=== PATIENT | male | born 1955 | race Caucasian/White ===

== ENCOUNTER → 2017-06-04 | Outpatient (CLI) | payer BC | LOC: FIMAGING 12:13 | PROVIDERS: ATTEND Orthopaedic Surgery | DX: M17.12 Unilateral primary osteoarthritis, left knee (principal) ==

== ENCOUNTER 2017-06-20 05:48 | Observation (INO) | payer BC ==
[2017-06-20] MEDS ORDERED: ACETAMINOPHEN 325 MG TAB PO ONE (05:52)
[2017-06-20] MEDS ORDERED: ceFAZolin 2 GM/SWFI 2 GM/20 ML SYR IVP ONE (05:52)
[2017-06-20] MEDS ORDERED: FAMOTIDINE 20 MG TAB PO ONE (05:52)
[2017-06-20] MEDS ORDERED: DEXAMETHASONE 4 MG/ML VIAL IVP ONE (05:52)
[2017-06-20] MEDS ORDERED: LR 1,000 ML IV ONE (05:54)
[2017-06-20] MEDS ORDERED: LIDOCAINE 1% 2 ML INJ ID PRN (05:54)
[2017-06-20] MEDS ORDERED: ROPIVACAINE 0.2% 80 MG, EPINEPHrine 0.2 MG, KETOROLAC TROMETHAMINE 30 MG in SYRINGE 0 ML IU ONE (06:00)
[2017-06-20] MEDS ORDERED: TRANEXAMIC ACID 3,000 MG in NS 50 ML IRR ONE (06:00)
[2017-06-20] MEDS ORDERED: VANCOMYCIN 1 GM VIAL ONE (06:37)
[2017-06-20] MEDS ORDERED: TRANEXAMIC ACID 3,000 MG/50 ML BAG IRR ONE (06:37)
[2017-06-20] MEDS ORDERED: MIDAZOLAM 2 MG/2 ML VIAL IVP ONE (07:00)
--- NOTE | 2017-06-20 07:00 | PDANEPAE ---
ANE History of Present Illness L partial knee replacement ANE Past Medical History - Cardiovascular History Hx Hypertension: No Hx Arrhythmias: No Hx Chest Pain: No Hx Coronary Artery / Peripheral Vascular Disease: No Hx CHF / Valvular Disease: No Hx Palpitations: No Cardiovascular History Comment: on Rx chol - Pulmonary History Hx COPD: No Hx Asthma/Reactive Airway Disease: No Hx Recent Upper Respiratory Infection: No Hx Oxygen in Use at Home: No Hx Sleep Apnea: Yes Sleep Apnea Screening Result - Last Documented: Positive Pulmonary History Comment: lives at [address] in [place]. recent dx JAQUI -uses CPAP - Neurologic History Hx Cerebrovascular Accident: No Hx Seizures: No Hx Dementia: No - Endocrine History Hx Diabetes: No Hypothyroid: No Obesity: mild - Renal History Hx Renal Disorders: No - Liver History Hx Hepatic Disorders: No - Neurological & Psychiatric Hx Hx Neurological and Psychiatric Disorders: No Neurological / Psychiatric History Comment: sees Chiropractor for adjustments. - Cancer History Hx Cancer: No - Congenital Disorder History Hx Congenital Disorders: No - GI History Hx Gastrointestinal Disorders: Yes Gastrointestinal History Comment: heartburn - Other Health History Other Health History: OA L knee. Blood clot DVT L leg 1999 w/ L knee scope - Chronic Pain History Chronic Pain: No - Surgical History Prior Surgeries: R ft ORIF (crushed) 8-12. L knee scope 1999 ANE Review of Systems Review of Systems: - Exercise capacity METS (RN): 4 METS ANE Patient History - Allergies Allergies/Adverse Reactions: No Known Allergies Allergy (Unverified 06/20/17 06:51) - Home Medications Home Medications: Aspirin [Aspirin 81mg (*)] 81 mg PO DAILY 05/10/17 [Last Taken 06/13/17] Cholecalciferol Vit D3 [Vitamin D3 2000 units tab (OTC)] 8,000 units PO DAILY [Last Taken 06/06/17] Ezetimibe [Zetia 10 MG (*)] 10 mg PO HS 05/10/17 [Last Taken 06/18/17] Famotidine [Pepcid 20 MG (*)] 20 mg PO DAILY 05/10/17 [Last Taken 06/18/17] Famotidine [Pepcid 20 MG (*)] 20 mg PO HS PRN 05/10/17 [Last Taken 06/13/17] Herbals/Supplements -Info Only 1 ea PO DAILY 05/10/17 [Last Taken 06/06/17] [place]-3 Fatty Acids [Fish Oil 1000 mg (*)] 1,000 mg PO DAILY 05/10/17 [Last Taken 06/06/17] Pravastatin Sodium [Pravachol] 10 mg PO HS 05/10/17 [Last Taken 06/18/17] Vitamin B Complex [B Complex] 1 each PO DAILY 05/10/17 [Last Taken 06/06/17] - NPO status NPO Since - Liquids (Date): 06/19/17 NPO Since - Liquids (Time): 22:00 NPO Since - Solids (Date): 06/19/17 NPO Since - Solids (Time): 22:00 - Anes Hx Anes Hx: no prior problems - Smoking Hx Smoking Status: Never smoked Marijuana use: No - Alcohol Use Alcohol Use: Other - Family Anes Hx Family Anes Hx: none ANE Labs/Vital Signs - Vital Signs Blood Pressure: 134/77 Heart Rate: 69 Respiratory Rate: 16 O2 Sat (%): 93 Height: 190.5 cm Weight: 99.79 kg ANE Physical Exam - Airway Neck exam: FROM Mallampati Score: Class 2 Mouth exam: normal dental/mouth exam - Pulmonary Pulmonary: clear to auscultation - Cardiovascular Cardiovascular: regular rate and rhythym ANE Anesthesia Plan Anesthesia Plan: spinal Regional Anesthesia: adductor canal FNB
[2017-06-20] MEDS ORDERED: MIDAZOLAM 2 MG/2 ML VIAL ONE (07:03)
[2017-06-20] MEDS ORDERED: fentaNYL 100 MCG/2 ML INJ ONE (07:10)
[2017-06-20] MEDS ORDERED: PROPOFOL 200 MG/20 ML VIAL ONE ×2 (07:11→07:58)
--- NOTE | 2017-06-20 07:12 | PDHPUP ---
History & Physical Update H&P update statement: This history and physical update is based on an assessment of the patient which was completed after admission or registration (within 24 hours), but prior to the surgery/procedure. H&P update: H&P reviewed & patient examined, no change in patient's condition since H&P completed
[2017-06-20] MEDS ORDERED: diphenhydrAMINE 25 MG CAP PO PRN (07:23)
[2017-06-20] MEDS ORDERED: ONDANSETRON DISINTEGRATING 4 MG TAB PO PRN (07:23)
[2017-06-20] MEDS ORDERED: TEMAZEPAM 15 MG CAP PO PRN (07:23)
[2017-06-20] MEDS ORDERED: PROMETHAZINE HCL 25 MG SUPPR PR PRN (07:23)
[2017-06-20] MEDS ORDERED: ONDANSETRON 4 MG/2 ML VIAL IVP PRN (07:23)
[2017-06-20] MEDS ORDERED: DIPHENOXYLATE/ATROPINE LOMOTIL 1 TAB PO PRN (07:23)
[2017-06-20] MEDS ORDERED: BISACODYL 10 MG SUPP PR PRN (07:23)
[2017-06-20] MEDS ORDERED: PROMETHAZINE HCL 25 MG/ML INJ IVP PRN (07:23)
[2017-06-20] MEDS ORDERED: CYCLOBENZAPRINE 10 MG TAB PO PRN (07:23)
[2017-06-20] MEDS ORDERED: MAGNESIUM HYDROXIDE 30 ML UDCUP PO PRN (07:23)
[2017-06-20] MEDS ORDERED: METOCLOPRAMIDE 10 MG/2 ML VIAL IVP PRN (07:23)
[2017-06-20] MEDS ORDERED: POLYETHYLENE GLYCOL 3350 17 GM PKT PO PRN (07:23)
[2017-06-20] MEDS ORDERED: LACTULOSE 20 GM/30 ML UDCUP PO PRN (07:23)
[2017-06-20] MEDS ORDERED: LR 1,000 ML IV SCH (07:30)
[2017-06-20] MEDS ORDERED: clonIDINE 1 MG/10 ML VIAL EP ONE (08:00)
[2017-06-20] MEDS ORDERED: ROPIVACAINE HCL 150 MG/30 ML INJ ONE (08:00)
[2017-06-20] MEDS ORDERED: NALOXONE HCL 0.4 MG/ML INJ IVP PRN (08:27)
[2017-06-20] MEDS ORDERED: fentaNYL 100 MCG/2 ML INJ IVP PRN (08:27)
--- NOTE | 2017-06-20 08:38 | POSTOPPROG ---
Post Op Note Date of Operation: 06/20/17 Surgeon: Rebel [place] Maintainer: love jurado Anesthesiologist: dr. luevano Anesthesia: Spinal, Other (Specify) (adductor canal block) Pre-op Diagnosis: L med knee OA Post-op Diagnosis: same Indication: left knee pain due to OA that failed conservative measures Procedure: L med MPL Findings: severe knee OA Inf/Abcess present in the surg proc area at time of surgery?: No EBL: 50-100
--- NOTE | 2017-06-20 11:31 | POSTANESTH ---
Post Anesthetic Evaluation Cardiovascular Status: Normal, Stable Respiratory Status: Similar to Pre-op Cond. Level of Consciousness/Mental Status: Can Participate in Eval Pain Control: Adequate, Prn Tx Ordered Nausea/Vomiting Control: Adequate, Prn Tx Ordered Complications Possibly Related to Anesthesia: None Noted
[2017-06-20] MEDS: ACETAMINOPHEN 325 MG TAB PO SCH ×4 (11:41→23:21)
[2017-06-20] MEDS: SENNOSIDES/DOCUSATE SODIUM TAB PO SCH ×2 (14:09→21:01)
[2017-06-20] MEDS: ceFAZolin 2 GM/SWFI 2 GM/20 ML SYR IVP SCH ×2 (14:36→23:21)
[2017-06-20] MEDS: oxyCODONE IR 5 MG TAB PO PRN ×2 (15:53→21:02)
[2017-06-20] MEDS ORDERED: WARFARIN SODIUM 5 MG TAB PO SCH (16:00)
[2017-06-20] MEDS ORDERED: EZETIMIBE 10 MG TAB PO SCH (21:00)
[2017-06-20] MEDS ORDERED: PRAVASTATIN SODIUM 10 MG TAB PO SCH (21:00)
[2017-06-20] MEDS: FAMOTIDINE 20 MG TAB PO SCH (21:01)
[2017-06-21] MEDS: oxyCODONE IR 5 MG TAB PO PRN ×2 (05:44→10:28)
[2017-06-21] MEDS: ACETAMINOPHEN 325 MG TAB PO SCH (05:46)
[2017-06-21 06:37] LABS: HEMATOCRIT 42.4 % (40.0-51.0); HEMOGLOBIN 14.8 g/dL (13.7-17.5)
[2017-06-21 06:58] LABS: INR 1.07 (0.83-1.16); PROTIME(PATIENT) 14.1 SEC (12.0-15.0)
[2017-06-21 07:29] VITALS: BP 99/55; PULSE 51; RESP 14; TEMP 98.2; O2SAT 92
[2017-06-21] MEDS ORDERED: ENOXAPARIN 40 MG/0.4 ML SYR SC SCH (09:00)
[2017-06-21] MEDS: SENNOSIDES/DOCUSATE SODIUM TAB PO SCH (09:08)
[2017-06-21] MEDS: FAMOTIDINE 20 MG TAB PO SCH (09:09)
--- NOTE | 2017-06-21 10:43 | SOAPPROG ---
SOAP Progress Note Assessment/Plan: Assessment: Patient is doing well POD 1 s/p L med MPL Pain management: pain is well controlled on oral pain meds. VTE ppx: recommend coumadin and lovenox, cont FILEMON and SCDs Anemia: level is expected initially postop. Asymptomatic. Continue to monitor D/c planning: d/c to home today pending release from PT Plan: 06/21/17 10:39 Subjective: Isaiah is doing well today, denies SOB, chest pain and N/V. Objective: Vital Signs Temp Pulse Resp BP Pulse Ox 36.8 C 51 L 14 99/55 L 92 06/21/17 07:27 06/21/17 07:27 06/21/17 07:27 06/21/17 07:27 06/21/17 07:27 Laboratory Results 06/21/17 05:40 06/20/17 06/21/17 06/22/17 05:59 05:59 05:59 Intake Total 3878 Output Total 1120 Balance 2758 PT 14.1 SEC (12.0-15.0) 06/21/17 05:40 INR 1.07 (0.83-1.16) 06/21/17 05:40 LLE: incision is clean and dry, NVI, +pf/df ICD10 Worksheet Patient Problems: Problems Problem Status Onset Primary localized osteoarthritis of left knee Acute
--- NOTE | 2017-06-21 12:01 | ASDISCHSUM ---
Discharge Information Plan Status:Home with No Needs Medically Cleared to Leave: Discharge Date:06/21/2017 11:07 AM CM D/C Disposition: ADT D/C Disposition:Home, Routine, Self-Care Projected Discharge Date:06/21/2017 11:07 AM Transportation at D/C: Discharge Delay Reason: Follow-Up Date:06/21/2017 11:07 AM Discharge Slot: Final Diagnosis: Placement Information Patient Contact Information Contact Name:BHARATH Relationship: Address:[address] City:[facility] [facility] Phone: [facility] Code:[place] [address] Email: Financial Information Financial Class:HMO and PPO Plans Primary Plan Desc: OUT OF STATE PPO Primary Plan Number:[id number] Secondary Plan Desc: Secondary Plan Number: Assessment Information CM Inspector Line Assessment CJR Did you go to joint Answers: No (why?) Notes: Sent Piyush the online class? video link via email Note CM Note Notes: Piyush is planning to discharge home after spending one night in the hospital post-surgery. He has all of his mobility equipment including a toilet seat raiser and an ice machine. Piyush has set up outpatient physical therapy local to his home. Date Signed: 06/15/2017 09:15 AM Electronically Signed By:Esther Hernandez Intervention Information Intervention Type:*Incorrect Registration Date of Service:06/20/2017 12:24 PM Patient Type:Observation Staff Member:BOB Taylor Susan Hours: Discipline: Severity: Comment:
--- NOTE | 2017-06-21 19:42 | GOP ---
[f rep st] OPERATIVE REPORT DATE OF OPERATION: 06/20/2017 SURGEON: Americo Neal MD [employer]: RAISA Marks. ANESTHESIA: Spinal. PREOPERATIVE DIAGNOSIS: Left knee osteoarthritis. POSTOPERATIVE DIAGNOSIS: Left knee osteoarthritis. PROCEDURE PERFORMED: Left partial knee replacement with computer navigation and robotic assist. ESTIMATED BLOOD LOSS: 30 cc. FINDINGS/PATHOLOGY: Severe medial compartment osteoarthritis. INDICATIONS: This is a 61 year old male with progressive pain of the left knee unresponsive to conservative care. Risks and benefits of surgical intervention were explained in detail. DESCRIPTION OF PROCEDURE: The patient was brought to the operating room and placed on the table in supine position. Spinal anesthesia was induced without difficulty. A pneumatic tourniquet was applied about the left proximal thigh and the leg was prepped and draped in sterile fashion. Attention was turned first to the distal aspect of the left femur. At 3 cm proximal to the lateral rise of the femur, 2 percutaneous half pins were placed for fixation of the femoral array. In a similar fashion, 2 pins were placed anterolateral on the tibia for fixation of the tibial array. External land marking and registration of the hip center was performed without difficulty. After exsanguination by elevation, the tourniquet was inflated to 275 mmHg. Incision was made from the tibial tuberosity to the superior pole of the patella. Dissection was carried out through the subcutaneous tissue to the deep fascia using Bovie electrocautery for hemostasis. Medial parapatellar arthrotomy was carried out to the superior pole of the patella. The medial collateral ligament was elevated and the infrapatellar fat pad was resected. Internal femoral and tibial registration was carried out without difficulty and the femoral and tibial checkpoints were placed and verified for accuracy. Attention was turned to the femur. The foot print for the size 5 femoral component was cut with the 6 mm bur using the [employer] robotic system and verified for accuracy against the CT based plan. The hole was cut for the femoral post. In a similar fashion, the 6 mm bur was used to cut the foot print for the size 6 tibial component using the [employer] system and verified for accuracy against the CT based plan. Attention was turned to the posterior aspect of the knee and remnants of the medial meniscus were excised. The posterior capsule was injected with ropivacaine, epinephrine and Toradol. Trial reduction was carried out and there was excellent range of motion, alignment and stability using the size 5 femoral component and the size 6 tibial component, 6 x 8 polyethylene. All trials were then removed. The joint was thoroughly irrigated and carefully dried. One package of cement and 1 gram of vancomycin were mixed in the vacuum mixer and placed on the fixation surfaces of all components. The components were implanted and all excess cement was thoroughly removed. Implant placement was verified against the CT view plan and found to be excellent. The tourniquet was deflated and all bleeders were coagulated. The wound was thoroughly irrigated and closed using interrupted sutures of 2-0 Vicryl for the joint capsule. The subcu was closed with 3-0 Vicryl and the skin with 4-0 Monocryl. Dermabond and Steri-Strips were applied, followed by a compressive dressing. The patient was then moved from the operating room to the recovery room in good condition, having tolerated the procedure well. CASE CLASSIFICATION: Clean. /[id number]/MODL MTDD
--- NOTE | 2017-06-21 23:17 | GDS ---
[f rep st] DISCHARGE SUMMARY ADMISSION DIAGNOSIS: Left knee osteoarthritis. DISCHARGE DIAGNOSIS: Left knee osteoarthritis. PROCEDURE: Left partial knee arthroplasty, medial compartment, robot assisted. VTE PROPHYLAXIS: Recommend Coumadin and Lovenox. BRIEF DESCRIPTION OF HOSPITAL STAY: Patient was admitted for an elective joint arthroplasty. The pa tient tolerated the procedure well and has passed physical therapy. The patient was given appropriat e antibiotic prophylaxis and venous thromboembolism prophylaxis. The patient's pain was well control led on oral pain medication, patient was holding down food, and had urinated. Decision was made to d ischarge the patient. The patient was given post-operative prescriptions pre-operatively. PLAN: scheduled July 09 at 9:15 a.m. /[id number]/MODL
== END 2017-06-21 11:07 | disposition home or self-care (01) ==
LOC: INTOOBSV 05:48 → F3N 05:48
PROVIDERS: ADMIT Orthopaedic Surgery; ATTEND Orthopaedic Surgery
DX: M17.12 Unilateral primary osteoarthritis, left knee (principal); M25.562 Pain in left knee; E78.5 Hyperlipidemia, unspecified; G47.30 Sleep apnea, unspecified; Z86.718 Personal history of other venous thrombosis and embolism
CPT/HCPCS: 20985; 27446; 73560; 97110; 97116; 97161; 97165; G0378; C1713; J0171; J0690; J0735; J1100; J1650; J1885; J2250; J2704; J2795; J3010; J3370